=== PATIENT | female | born 1975 | race Caucasian/White ===

== ENCOUNTER 2018-03-18 10:38 | Outpatient (CLI) | payer OTHER | END 2018-03-18 10:46 | disposition home or self-care (01) | LOC: MAMO-SONO 10:38 → EDBD 10:38 → MAMO-SONO 10:46 | DX: Z12.31 Encounter for screening mammogram for malignant neoplasm of breast (principal); N92.0 Excessive and frequent menstruation with regular cycle; R10.2 Pelvic and perineal pain; N84.0 Polyp of corpus uteri ==

== ENCOUNTER 2018-10-08 06:06 | Day surgery (SDC) | payer OTHER ==
[2018-10-08] MEDS ORDERED: DOXYCYCLINE HY100 M2 PO (10:39)
[2018-10-08] MEDS ORDERED: Tylenol #3 PO (10:39)
== END 2018-10-08 14:45 | disposition home or self-care (01) ==
LOC: CIR.AMB 06:06
DX: N84.0 Polyp of corpus uteri (principal); D25.0 Submucous leiomyoma of uterus

== ENCOUNTER 2019-01-01 13:58 | Emergency (ER) | payer OTHER ==
[~2019-01-01] VITALS: Ht 157.5 cm; Wt 64.9 kg
[~2019-01-01 13:58] MED LIST: DOXYCYCLINE HY100 M2 PO; Tylenol #3 PO
== END 2019-01-01 21:11 | disposition home or self-care (01) ==
LOC: ER 13:58
DX: J11.1 Influenza due to unidentified influenza virus with other respiratory manifestations (principal)

== ENCOUNTER 2019-07-07 15:08 | Outpatient (CLI) | payer OTHER | END 2019-07-07 15:14 | disposition home or self-care (01) | LOC: MAMO-SONO 15:08 | DX: N60.11 Diffuse cystic mastopathy of right breast (principal); Z12.31 Encounter for screening mammogram for malignant neoplasm of breast; Z87.898 Personal history of other specified conditions ==

== ENCOUNTER 2019-08-03 15:06 | Inpatient (IN) | payer OTHER ==
[~2019-08-03] VITALS: Ht 157.5 cm; Wt 63.5 kg
[2019-08-21] MEDS ORDERED: Tylenol #3 PO (09:20)
== END 2019-08-21 11:24 | disposition home or self-care (01) | DRG 743 ==
LOC: OB/GYN 08-19 08:45 → SURG 08-19 08:45 → OB/GYN 08-19 09:07 → O/R 08-19 09:07 → OB/GYN 08-19 14:00
PROVIDERS: ADMIT Obstetrics & Gynecology
PROC: 0UQF7ZZ Repair Cul-de-sac, Via Natural or Artificial Opening (ICD-10-PCS; 2019-08-19)
PROC: 0USG7ZZ Reposition Vagina, Via Natural or Artificial Opening (ICD-10-PCS; 2019-08-19)
PROC: 0TJB8ZZ Inspection of Bladder, Via Natural or Artificial Opening Endoscopic (ICD-10-PCS; 2019-08-19)
PROC: 0UT9FZL Resection of Uterus, Supracervical, Via Natural or Artificial Opening With Percutaneous Endoscopic Assistance (ICD-10-PCS; principal; 2019-08-19 14:00)
DX: D25.1 Intramural leiomyoma of uterus (principal); N72 Inflammatory disease of cervix uteri; N73.6 Female pelvic peritoneal adhesions (postinfective); N81.11 Cystocele, midline; N92.0 Excessive and frequent menstruation with regular cycle; D50.0 Iron deficiency anemia secondary to blood loss (chronic); I10 Essential (primary) hypertension

== ENCOUNTER 2021-09-20 14:32 | Outpatient (CLI) | payer OTHER | END 2021-09-20 14:45 | disposition home or self-care (01) | LOC: MAMO-SONO 14:32 | DX: Z12.31 Encounter for screening mammogram for malignant neoplasm of breast (principal) ==

== ENCOUNTER 2022-09-23 09:04 | Outpatient (CLI) | payer OTHER | END 2022-09-23 09:07 | disposition home or self-care (01) | LOC: MAMO-SONO 09:04 | PROVIDERS: ATTEND Obstetrics & Gynecology | DX: Z12.31 Encounter for screening mammogram for malignant neoplasm of breast (principal); N60.11 Diffuse cystic mastopathy of right breast ==

== ENCOUNTER 2023-10-06 07:49 | Day surgery (SDC) | payer OTHER ==
[2023-10-01 12:13] LABS: HEMATOCRIT 39.2 % (36.0-45.00); HEMOGLOBIN 13.4 g/dL (12.0-15.00); MEAN CORPUSCULAR HEMOGLOBIN 33.4 pg (27.00-32.0); PLATELET COUNT 263 K/uL (150-450); RED CELL DISTRIBUTION WIDTH 13.5 % (11.5-14.5)
[2023-10-01 12:43] LABS: INR < 0.93; PARTIAL THROMBOPLASTIN TIME 28.4 SECONDS (22.0-34.0); PROTHROMBIN TIME 9.8 SECONDS (9.0-11.5)
[2023-10-01 12:47] LABS: BILIRUBIN TOTAL 0.38 mg/dL (0.3-1.2); CALCIUM 9.3 mg/dL (8.5-10.1); CREATININE SERUM 0.66 mg/dL (0.55-1.02); GFR 96.41; GLOBULINA 3.3 G/DL (2.4-3.5); POTASSIUM 3.97 mEq/L (3.5-5.1); TOTAL PROTEIN 7.3 gm/dL (6.4-8.2)
[2023-10-06] MEDS ORDERED: fentaNYL CITRATE 50 MCG/ML AMPUL IV ONE (11:00)
[2023-10-06] MEDS ORDERED: DIPHENHYDRAMINE HCL 50 MG/ML VIAL 1ML IV ONE (11:00)
[2023-10-06] MEDS ORDERED: MIDAZOLAM HCL 2 MG/2 ML VIAL IV ONE (11:00)
== END 2023-10-06 13:35 | disposition home or self-care (01) ==
LOC: AMB-ENDOS 07:49
PROVIDERS: ATTEND Surgery
DX: K63.5 Polyp of colon (principal); K57.30 Diverticulosis of large intestine without perforation or abscess without bleeding; K58.9 Irritable bowel syndrome, unspecified; K64.8 Other hemorrhoids; Z88.6 Allergy status to analgesic agent; Z91.011 Allergy to milk products

== ENCOUNTER 2023-10-27 13:39 | Outpatient (CLI) | payer OTHER | END 2023-10-27 13:52 | disposition home or self-care (01) | LOC: MAMO-SONO 13:39 | PROVIDERS: ATTEND Obstetrics & Gynecology | DX: N60.11 Diffuse cystic mastopathy of right breast (principal) ==

== ENCOUNTER 2024-07-19 10:39 | Outpatient (CLI) | payer OTHER | END 2024-07-19 10:48 | disposition home or self-care (01) | LOC: MAMO-SONO 10:39 | DX: N63.11 Unspecified lump in the right breast, upper outer quadrant (principal) ==